=== PATIENT | male | born 1990 | race Caucasian/White ===

== ENCOUNTER 2024-03-25 00:45 | Emergency (ER) | payer OTHER ==
[~2024-03-25] VITALS: Ht 188 cm; Wt 99.8 kg
[2024-03-25 00:56] VITALS: BP_SYST 106; PULSE 66; RESP 11; TEMP 98.9; O2SAT 95
[2024-03-25] MEDS: NACL 0.9% 1,000 ML IV ONE ×2 (01:00→02:42)
[2024-03-25 02:09] LABS: BASOPHILS % (AUTO) 0.6 % (0.0-2.0); EOSINOPHILS # (AUTO) 0.3 K/uL (0.0-0.4); HEMATOCRIT 36.4 % (36-54); HEMOGLOBIN 12.6 g/dL (14.0-18.0); LYMPHOCYTES # (AUTO) 2.3 K/uL (1.0-5.5); LYMPHOCYTES % (AUTO) 43.6 % (20.5-51.5); MEAN CORPUSCULAR HEMOGLOBIN 31 pg (27-31); MEAN CORPUSCULAR HGB CONC 35 % (32-36); MEAN CORPUSCULAR VOLUME 90 fL (79.0-98.0); MONOCYTES # (AUTO) 0.5 K/uL (0.0-1.0); MONOCYTES % (AUTO) 9.7 % (1.7-9.3); NEUTROPHILS # (AUTO) 2.2 K/uL (1.8-7.7); NEUTROPHILS % (AUTO) 41.1 % (40.0-70.0); PLATELET COUNT (AUTO) 175 K/uL (130-430); RED BLOOD CELL COUNT(AUTO) 4.06 MIL/uL (4.2-6.2); RED CELL DISTRIBUTION WIDTH 13.2 % (9.0-15.0); WHITE BLOOD COUNT (AUTO) 5.4 K/uL (4.8-10.8)
[2024-03-25 02:15] LABS: ALANINE AMINOTRANSFERASE 19 U/L (12-78); ALBUMIN 3.9 g/dL (3.4-4.8); ANION GAP 6 (5-15); ASPARTATE AMINOTRANSFERASE 20 U/L (10-37); CALCIUM 8.8 mg/dL (8.4-11.0); CARBON DIOXIDE 31 mmol/L (23-29); CHLORIDE 107 mmol/L (98-107); CREATININE 1.37 mg/dL (0.55-1.30); GFR AFRICAN AMERICAN 76 mL/min (>90); GFR NON AFRICAN-AMERICAN 63 mL/min (>90); GLUCOSE 102 mg/dL (74-106); POTASSIUM 3.9 mmol/L (3.5-5.1); SODIUM SERUM 144 mmol/L (136-145); TOTAL BILIRUBIN 0.3 mg/dL (0.0-1.0); TOTAL PROTEIN, SERUM 6.7 g/dL (6.4-8.3); UREA NITROGEN, BLOOD 9 mg/dL (8-21)
[2024-03-25 02:16] LABS: ALCOHOL, BLOOD < 3 mg/dL (<10)
[2024-03-25 05:28] VITALS: BP_SYST 102; PULSE 62; RESP 19; TEMP 98; O2SAT 97
== END 2024-03-25 05:28 | disposition home or self-care (01) ==
LOC: SED 00:45
DX: F19.10 Other psychoactive substance abuse, uncomplicated (principal); E87.8 Other disorders of electrolyte and fluid balance, not elsewhere classified; G93.41 Metabolic encephalopathy
CPT/HCPCS: 99284; 96360; 71045; 96361; 80053; 82550; 85025; 36415; G0482; J7030